=== PATIENT | male | born 1985 | race Caucasian/White ===

== ENCOUNTER 2022-09-19 15:00 | Emergency (ER) | payer MEDICAID ==
[~2022-09-19] VITALS: Ht 185.4 cm; Wt 72.0 kg
[2022-09-19 15:34] VITALS: BP 113/67
[2022-09-19] MEDS ORDERED: MUPI22OI30 TOP (16:35)
[2022-09-19] MEDS ORDERED: SULF1TAB45 PO (16:35)
== END 2022-09-19 17:07 | disposition home or self-care (01) ==
LOC: ER 15:02
DX: H57.89 Other specified disorders of eye and adnexa (principal); J34.9 Unspecified disorder of nose and nasal sinuses
CPT/HCPCS: 99283

== ENCOUNTER 2022-12-23 10:16 | Emergency (ER) | payer MEDICAID ==
[~2022-12-23] VITALS: Ht 185.4 cm; Wt 73.0 kg
[2022-12-23 10:24] VITALS: BP 118/65
[2022-12-23] MEDS ORDERED: SULF1TAB49 PO (10:48)
[2022-12-23] MEDS ORDERED: MUPI22OI30 TOP (10:48)
== END 2022-12-23 11:07 | disposition home or self-care (01) ==
LOC: ER 10:17
DX: L02.811 Cutaneous abscess of head [any part, except face] (principal); F17.200 Nicotine dependence, unspecified, uncomplicated
CPT/HCPCS: 99283

== ENCOUNTER 2023-02-17 19:03 | Emergency (ER) | payer SELFPAY ==
[~2023-02-17] VITALS: Ht 185.4 cm; Wt 81.8 kg
[2023-02-17 19:51] VITALS: BP 120/76
[2023-02-17] MEDS ORDERED: cephalexin 250mg capsule PO ONE (20:45)
[2023-02-17] MEDS ORDERED: sulfamethoxazole/trimethoprim DS (800/160mg) tablet PO ONE (20:45)
[2023-02-17] MEDS ORDERED: SULF1TAB45 PO (20:48)
[2023-02-17] MEDS ORDERED: CEPH250T PO (20:48)
== END 2023-02-17 21:09 | disposition home or self-care (01) ==
LOC: ER 19:04
DX: L08.9 Local infection of the skin and subcutaneous tissue, unspecified (principal); Z48.01 Encounter for change or removal of surgical wound dressing; Z79.899 Other long term (current) drug therapy
CPT/HCPCS: 99283

== ENCOUNTER 2023-02-25 19:24 | Emergency (ER) | payer SELFPAY ==
[~2023-02-25] VITALS: Ht 185.4 cm; Wt 79.5 kg
[~2023-02-25 19:24] MED LIST: CEPH250T PO; SULF1TAB45 PO
[2023-02-25 19:49] VITALS: BP 111/70
== END 2023-02-25 23:21 | disposition left against medical advice (07) ==
LOC: ER 19:25
DX: Z76.0 Encounter for issue of repeat prescription (principal); Z53.21 Procedure and treatment not carried out due to patient leaving prior to being seen by health care provider
CPT/HCPCS: 99281